=== PATIENT | female | born 1965 | race Caucasian/White ===

== ENCOUNTER 2016-10-12 21:40 | Emergency (ER) | payer BC ==
[~2016-10-12] VITALS: Ht 160 cm; Wt 56.1 kg
[~2016-10-12 21:40] MED LIST: CELEXA20 MG PO; CITALOPRAM HBR40 MG PO; FLEXERIL5 MG PO; MACROBID100 MG PO; NAPROSYN500 MG PO; NAPROXEN500 M2 GT; NEXIUM20 MG PO; NORCO 5/3251 TABLET PO; OMEPRAZOLE40 M1 PO; PERCOCET 5/31 TABLET PO; PREDNISONE20 MG PO; TESSALON PERLE100 MG PO; TRAZODONE HCL50 MG PO; VENTOLIN HFA18 GM IH; VICODIN,LORT1 TABLET PO; XANAX0.5 MG PO; ZITHROMAX Z-PA250 MG PO
[2016-10-12 22:09] LABS: MCH 28.7 PG (29.0-34.0); MCV 84.3 FL (83-99); MEAN PLAT.VOLUME 9.6 uM^3 (9.5-12.4); PLATELET COUNT 425 K/uL (156-360); RBC DIS.WIDTH-CV 14.2 % (11.8-14.6); RBC DIS.WIDTH-SD 42.9 % (39-53); RED BLOOD COUNT 4.15 M/uL (3.80-5.20); WHITE BLOOD COUNT 9.1 K/uL (4.1-10.2)
[2016-10-12 22:16] LABS: CHLORIDE 106 mEq/L (99-109); POTASSIUM 3.5 mEq/L (3.7-5.4); SODIUM 140 mEq/L (136-147)
[2016-10-12 22:18] LABS: GLUCOSE 121 mg/dL (70-99)
[2016-10-12 22:20] LABS: ANION GAP 11 MEQ/L (2-14); TOTAL BILIRUBIN 0.2 mg/dL (0.0-1.0)
[2016-10-12 22:22] LABS: ALKALINE PHOSPHATASE 84 IU/L (3-129); GFR ESTIMATE (CALCULATED) > 59 mL/min/
[2016-10-12 22:23] LABS: UREA NITROGEN (BUN) 16 mg/dL (9-23)
[2016-10-12 22:25] LABS: LIPASE 30 U/L (1.0-51.0)
[2016-10-12 22:31] LABS: QUANTITATIVE HCG < 4.0 MIU/ML
[2016-10-12] MEDS ORDERED: MOTRIN600 MG PO (22:50)
[2016-10-12] MEDS ORDERED: PHENAZOPYRIDIN100 MG PO (22:50)
[2016-10-12] MEDS ORDERED: BACTRIM,SEPT1 TABLET PO (22:51)
[2016-10-12 23:23] LABS: ADD MIUA? YES; BILIRUBIN NEGATIVE; BLOOD NEGATIVE; GLUCOSE (STRIP) NEGATIVE; KETONES NEGATIVE; LEUKOCYTES NEGATIVE; NITRITE POSITIVE; PROTEIN (STRIP) NEGATIVE; SPECIFIC GRAVITY 1.014 (1.000-1.030)
[2016-10-12 23:29] LABS: COLOR ORANGE ((YELLOW))
[2016-10-12 23:31] LABS: BACTERIA RARE /HPF; EPITHELIAL CELLS RARE /HPF; HYALINE CASTS 0-5 /LPF; MUCUS TRACE /LPF; RED BLOOD CELLS 0-5 /HPF (0-5); UCUL ADDED? NO; WHITE BLOOD CELLS 0-5 /HPF (0-5)
[2016-10-13] MEDS ORDERED: PERCOCET 5/31 TABLET PO (00:40)
[2016-10-13] MEDS ORDERED: KEFLEX500 MG PO (00:40)
[2016-10-13 00:49] VITALS: BP 118/70
== END 2016-10-13 00:51 | disposition home or self-care (01) ==
LOC: EXP 21:40 → EME 21:40 → EXP 10-13 00:51
DX: N39.0 Urinary tract infection, site not specified (principal); R10.9 Unspecified abdominal pain; Z87.442 Personal history of urinary calculi; K21.9 Gastro-esophageal reflux disease without esophagitis; F17.200 Nicotine dependence, unspecified, uncomplicated
CPT/HCPCS: 74176; 80053; 81003; 83690; 84702; 85027; 87086; 99281; 99284

== ENCOUNTER 2017-02-07 20:22 | Emergency (ER) | payer BC ==
[~2017-02-07] VITALS: Ht 160 cm; Wt 53.8 kg
[~2017-02-07 20:22] MED LIST changes: +BACTRIM,SEPT1 TABLET PO; +KEFLEX500 MG PO; +MOTRIN600 MG PO; +PHENAZOPYRIDIN100 MG PO
[2017-02-07] MEDS ORDERED: KEFLEX500 MG PO (21:25)
[2017-02-07 22:07] VITALS: BP 169/111
== END 2017-02-07 22:08 | disposition home or self-care (01) ==
LOC: EME 20:22
DX: S61.011A Laceration without foreign body of right thumb without damage to nail, initial encounter (principal); W26.0XXA Contact with knife, initial encounter; Y92.009 Unspecified place in unspecified non-institutional (private) residence as the place of occurrence of the external cause; Z23 Encounter for immunization; Z88.0 Allergy status to penicillin
CPT/HCPCS: 99281; 99282

== ENCOUNTER 2017-07-04 21:54 | Emergency (ER) | payer BC ==
[~2017-07-04] VITALS: Ht 160 cm; Wt 54.5 kg
[2017-07-05] MEDS ORDERED: CEFDINIR300 MG PO (00:10)
[2017-07-05] MEDS ORDERED: CIPRODEX OTIC7.5 ML RIGHT EAR (00:10)
[2017-07-05 00:15] VITALS: BP 142/95
== END 2017-07-05 00:16 | disposition home or self-care (01) ==
LOC: EME 21:54
DX: H60.91 Unspecified otitis externa, right ear (principal); F17.200 Nicotine dependence, unspecified, uncomplicated; Z88.0 Allergy status to penicillin
CPT/HCPCS: 99281; 99283